=== PATIENT | male | born 1960 | race Caucasian/White ===

== ENCOUNTER 2018-05-09 11:30 | Inpatient (IN) ==
[2018-05-02 16:20] LABS: Appearance,Urine CLEAR; Bacteria,Urine 0 /hpf (0); Bilirubin,Urine NEG (NEG); Color,Urine YELLOW; Glucose,Urine (UA) NORM (NEG); Leukocyte Esterase,Urine NEG /uL (NEG); Mucus,Urine MANY /hpf (0); Protein,Urine 30 (1+) mg/dL (NEG); Specific Gravity,Urine >= 1.030 (1.000-1.035); Urine Blood NEG mg/dL (<0.03); Urine RBC < 1 /hpf (0-1); Urine Squamous Epithelial Cell < 1 /hpf (0-4); Urine Transitional Epi Cells < 1 /hpf (0-2); Urine WBC 2 /hpf (0-4); Urobilinogen,Urine NORM (NEG)
[2018-05-02 16:40] LABS: Basophils # (Auto) 0 K/mcL (0.0-0.3); Basophils % (Auto) 0.4 % (0.0-2.0); Eosinophils # (Auto) 0.1 K/mcL (0.0-0.7); Eosinophils % (Auto) 2.7 % (0.0-7.0); Granulocytes % (Auto) 49.8 % (38.0-78.0); Lymphocytes # (Auto) 1.9 K/mcL (1.5-4.8); Lymphocytes % (Auto) 39.1 % (15.5-49.0); Mean Cell Volume 85.8 fL (80.0-100.0); Mean Corpuscular HGB Conc 33.2 g/dL (31.0-36.0); Monocytes # (Auto) 0.4 K/mcL (0.1-0.9); Platelet Count 192 K/mcL (140-440); RBC 5.27 M/mcL (4.50-5.90)
[2018-05-02 17:32] LABS: Blood Urea Nitrogen 15 mg/dl (6-20)
[~2018-05-09 11:30] MED LIST: 0.9 % SODIUM CHLORIDE 9 ML, KETOROLAC 30 MG, ROPIVACAINE HCL/PF 49.5 ML, EPINEPHrine 0.... IJ SCH; ACETAMINOPHEN 500 MG TABLET PO SCH; CELECOXIB 200 MG CAPSULE PO SCH; PREGABALIN 75 MG CAPSULE PO SCH; ceFAZolin 1 GM VIAL IV SCH; oxyCODONE 10 MG TAB.ER.12H PO SCH
[2018-05-09] MEDS ORDERED: GENTAMICIN SULFATE 800 MG/20 ML VIAL IR ONE (12:48)
[2018-05-09] MEDS ORDERED: DEXAMETHASONE 4 MG/ML VIAL IV ONE (13:20)
[2018-05-09] MEDS ORDERED: ONDANSETRON 4 MG/2 ML VIAL IV ONE (13:20)
[2018-05-09] MEDS ORDERED: TRANEXAMIC ACID 1,000 MG/10 ML VIAL IV ONE ×2 (13:20→15:11)
[2018-05-09] MEDS ORDERED: ROPIVACAINE HCL/PF 20 ML VIAL IJ ONE (13:20)
[2018-05-09] MEDS ORDERED: LIDOCAINE HCL/PF 100 MG/5 ML SYRINGE IV ONE (13:20)
[2018-05-09] MEDS ORDERED: MIDAZOLAM 5 MG/5 ML VIAL IV ONE (13:20)
[2018-05-09] MEDS ORDERED: ePHEDrine 50 MG/ML AMPUL IV ONE (13:20)
[2018-05-09] MEDS ORDERED: PROPOFOL 200 MG/20 ML VIAL IV ONE (13:20)
[2018-05-09] MEDS ORDERED: FLEETS ADULT ENEMA PR PRN (15:11)
[2018-05-09] MEDS ORDERED: TEMAZEPAM 15 MG CAPSULE PO PRN (15:11)
[2018-05-09] MEDS ORDERED: POLYETHYLENE GLYCOL 3350 17 GM PACKET PO PRN (15:11)
[2018-05-09] MEDS ORDERED: BISACODYL 10 MG SUPP.RECT PR PRN (15:11)
[2018-05-09] MEDS ORDERED: BENZOCAINE/MENTHOL 1 LOZENGE PO PRN (15:11)
[2018-05-09] MEDS ORDERED: ACETAMINOPHEN 325 MG TABLET PO PRN (15:11)
[2018-05-09] MEDS ORDERED: MAGNESIUM HYDROXIDE 30 ML ORAL.SUSP PO PRN (15:11)
[2018-05-09] MEDS ORDERED: ONDANSETRON 4 MG/2 ML VIAL IV PRN ×2 (15:11→15:12)
[2018-05-09] MEDS ORDERED: HYDROmorphone 2 MG/ML VIAL IV PRN ×2 (15:11→15:12)
--- NOTE | 2018-05-09 15:11 | Brief Operative Note ---
Date of procedure: 05/09/18 Pre-op diagnosis: Right knee djd severe in all compartments Post-op diagnosis: same Procedure: right tka with marty robot Grafts/Implants: Yes Anesthesia: GETA Complications: none Surgeon: Chaz Valderrama Shaker Washer: Bradford Farias Estimated blood loss (cc): 50 Tourniquet Time (Minutes): 64 Specimens Removed/Pathology: none sent Condition: stable Disposition: PACU
[2018-05-09] MEDS ORDERED: MEPERIDINE 25 MG/ML SYRINGE IV PRN (15:12)
[2018-05-09] MEDS ORDERED: METHOCARBAMOL 1,000 MG/10 ML VIAL IV PRN (15:12)
[2018-05-09] MEDS ORDERED: fentaNYL 100 MCG/2 ML VIAL IV PRN (15:12)
[2018-05-09] MEDS ORDERED: METOPROLOL TARTRATE 5 MG/5 ML VIAL IV PRN (15:12)
[2018-05-09] MEDS ORDERED: ATROPINE SULFATE 0.4 MG/ML VIAL IV PRN (15:12)
[2018-05-09] MEDS ORDERED: NALOXONE HCL 0.4 MG/ML VIAL IV PRN (15:12)
[2018-05-09] MEDS ORDERED: ePHEDrine 50 MG/ML AMPUL IV PRN (15:12)
[2018-05-09] MEDS ORDERED: diphenhydrAMINE 50 MG/ML VIAL IV PRN (15:12)
[2018-05-09] MEDS ORDERED: PROMETHAZINE 25 MG/ML VIAL IV PRN (15:12)
[2018-05-09] MEDS ORDERED: IPRATROPIUM/ALBUTEROL 3 ML AMPUL.NEB NEB PRN (15:12)
[2018-05-09] MEDS ORDERED: FLUMAZENIL 0.1 MG/ML ML IV PRN (15:12)
[2018-05-09] MEDS ORDERED: LACTATED RINGERS 1,000 ML IV SCH (15:15)
[2018-05-09] MEDS ORDERED: 0.45 % SODIUM CHLORIDE 1,000 ML IV SCH (15:15)
--- NOTE | 2018-05-09 15:44 | Operative Note ---
DATE OF OPERATION: 05/09/2018 PREOPERATIVE DIAGNOSIS: Right knee degenerative arthritis. POSTOPERATIVE DIAGNOSIS: Right knee degenerative arthritis. PROCEDURE: Robotic total knee arthroplasty. SURGEON: Chaz Valderrama M.D. FREELANCE PHOTOGRAPHER: Kyle Farias PA-C. ANESTHESIA: General LMA anesthesia. TOURNIQUET TIME: Approximately 64 minutes. IMPLANTS: Size 8 tibial and femoral implants cemented with a 10 mm thick polyethylene with a deep dish for a posterior stabilized design. The patella was a 40 mm oval patella. COMPLICATIONS: None. ESTIMATED BLOOD LOSS: About 50 mL. DESCRIPTION OF PROCEDURE: The patient was brought to the operating room and put to sleep with general LMA anesthesia. Once asleep, a timeout was performed. We confirmed the right leg as the operative site by initials, consent form, and x-rays. We placed Ioban over the skin, exsanguinated the leg, and inflated the tourniquet to 250 pounds of pressure. A midline incision was then made. The pins above the knee were placed from inside the incision. The pins below were placed through the skin. I then registered the center of hip rotation and medial and lateral malleoli. Intraarticular pins, one on the femur, one on the tibia, and then thirty points on the femur and tibia were registered. We balanced the knee at 90 degrees and 15 degrees respectively. We then removed osteophytes as well. Once we had positioned the implant to optimize the patient's anatomy and restore to neutral, we then brought in the robot, and the bony parts were cut as predesigned. More spurs were removed posteriorly. At this point, we then tapped into place a size 8 tibial baseplate. Once done, the femoral component size 8 was then tapped into place, lateralized as far as possible, and then prepared the patella. The patella was very wide. This was cut from a size 28 mm to 18 mm and then placed a 40 mm eccentric patella that covered very nicely. A small lateral chamfer was made. The patella tracked well. The knee balanced well. We did go to a size 10 polyethylene because the 9 was a little too loose. At this point, we irrigated thoroughly and cemented into place the size 8 components and 40 mm patellar button. A 10 mm polyethylene was placed. We kept the knee at 45 degrees, deflated the tourniquet at 64 minutes and controlled any bleeding. The pins were all removed and accounted for. We then closed the midvastus approach with #1 Stratafix x3. We closed the skin with 2-0 Vicryl and ryan. Sterile bandage was applied. He did have a prior scar, and we tried to optimize the incision to incorporate the scar as best we could. [facility]:iman Job ID: [id number] Doc ID: [id number] Chaz Valderrama MD
--- NOTE | 2018-05-09 16:06 | XRay Report ---
CLINICAL INFORMATION: Postsurgical follow-up TECHNIQUE: AP and crosstable lateral right knee COMPARISON: None. FINDINGS: Status post right total knee arthroplasty. Femoral and tibial components are in anatomic positions. There is postsurgical soft tissue and intra-articular gas. There are skin ryan anteriorly IMPRESSION: Status post right total knee arthroplasty Interpreted and Authenticated by: Kaushik Pierson 05/09/18
[2018-05-09] MEDS: KETOROLAC 15 MG/ML VIAL IV SCH ×2 (18:36→23:38)
[2018-05-09] MEDS: oxyCODONE/APAP 5/325MG TABLET PO PRN (18:36)
[2018-05-09] MEDS: ceFAZolin 1 GM VIAL IV SCH (20:49)
[2018-05-09] MEDS: ASPIRIN 325 MG ENTERIC COATED TABLET PO SCH (20:49)
[2018-05-09] MEDS: DOCUSATE SODIUM 100 MG CAPSULE PO SCH (20:49)
[2018-05-09] MEDS ORDERED: ATORVASTATIN 20 MG TABLET PO SCH (21:00)
[2018-05-09] MEDS ORDERED: SENNOSIDES 1 TABLET PO SCH (21:00)
[2018-05-09] MEDS ORDERED: 0.9 % SODIUM CHLORIDE 10 ML SYRINGE IV SCH (22:00)
[2018-05-10] MEDS: KETOROLAC 15 MG/ML VIAL IV SCH (05:32)
[2018-05-10] MEDS: ceFAZolin 1 GM VIAL IV SCH (05:32)
[2018-05-10] MEDS: oxyCODONE/APAP 5/325MG TABLET PO PRN ×2 (05:33→10:42)
--- NOTE | 2018-05-10 08:15 | Discharge Summary ---
Ortho Discharge - TKA - Patient Instructions Diet: Regular Diet Activity: activity as tolerated, weight bearing as tolerated Total Knee Protocol: For Total Knee: Start ROM ISAIAH with stationary bike or rocking chair. Work on gaining full extension of knee. Posterior dislocation precautions provided. Hip abductor strengthening and gait training instructions provided. Apply Cryocuff as instructed. Dressing Care: Aquacel Ag - leave on for 5 days - Follow Up Plan Follow Up Appointments: Walt Jones PA-C [Physician [facility] Tender] - 05/24/18 1:10 pm Disposition: Hospice - Home Prognosis: Good Rehab Potential: Good I certify that the patient requires SNF services: No Overall status at discharge: patient is progressing back to baseline - Orders For Discharge Prescriptions: Aspirin [Ecotrin] 325 mg PO DAILY #14 tab.ec oxyCODONE/APAP [Percocet 5-325 mg] 1 - 2 tab PO Q4H PRN #60 tablet PRN Reason: Pain Additional Discharge Orders: Physical Therapy at Discharge - TKA Location: None Selected Physical Therapy at Discharge - TKA Location: None Selected Physical Therapy at Discharge - TKA Location: None Selected CPM Discharge Order Location: None Selected CPM Discharge Order Location: None Selected Toilet Riser Discharge Order Location: None Selected Toilet Riser Discharge Order Location: None Selected Toilet Riser Discharge Order Location: None Selected Walker Location: None Selected Walker Location: None Selected
[2018-05-10] MEDS: ASPIRIN 325 MG ENTERIC COATED TABLET PO SCH (08:29)
[2018-05-10] MEDS: DOCUSATE SODIUM 100 MG CAPSULE PO SCH (08:29)
[2018-05-10] MEDS ORDERED: ASPIRIN 325 MG ENTERIC COATED TABLET PO SCH (09:00)
[2018-05-10] MEDS ORDERED: FENOFIBRATE 43 MG CAPSULE PO SCH (09:00)
[2018-05-10] MEDS ORDERED: MINOCYCLINE HCL 50 MG CAPSULE PO SCH (09:00)
== END 2018-05-10 11:40 | disposition hospice, home (50) | DRG 470 ==
LOC: MEDSUR 11:30
PROVIDERS: ADMIT Orthopaedic Surgery; ATTEND Orthopaedic Surgery